=== PATIENT | male | born 1950 | race Caucasian/White ===

== ENCOUNTER 2016-04-12 06:34 | Day surgery (SDC) | payer MEDICARE ==
[~2016-04-12] VITALS: Ht 175.3 cm; Wt 98.4 kg
[~2016-04-12 06:34] MED LIST: ATEN1TAB3 PO; HYDR-2762 PO; MULT1TAB52 PO; NAPR220C4 PO; SULF1TAB3 PO; SUMA100T4 PO
[2016-04-12] MEDS ORDERED: IV RINGERS,LACTATED 1000ML 1,000 ML IV SCH ×2 (07:00→08:30)
[2016-04-12] MEDS ORDERED: ONDANSETRON PF 4 MG/2 ML VIAL. IV PRN (07:00)
[2016-04-12] MEDS ORDERED: FENTANYL PF 100 MCG/2 ML VIAL. IV PRN ×2 (07:00→14:30)
[2016-04-12] MEDS ORDERED: PROCHLORPERAZINE 10 MG/2 ML VIAL. IV PRN ×2 (07:00→14:30)
[2016-04-12] MEDS ORDERED: LIDOCAINE 1% 1 ML SYRINGE. ID PRN (07:00)
[2016-04-12] MEDS ORDERED: EPINEPHRINE 30 MG/30 ML VIAL. ONE (07:30)
[2016-04-12] MEDS ORDERED: MIDAZOLAM HCL 2 MG/2 ML VIAL. ONE (07:42)
[2016-04-12] MEDS ORDERED: ROPIVacaine 0.2% IN 0.9%NACL PF 40 MG/20 ML DISP.SYRIN. ONE (07:42)
[2016-04-12] MEDS ORDERED: CEFAZOLIN 2GM PREMIX 50 ML IV PRN (08:00)
[2016-04-12] MEDS ORDERED: PROPOFOL 20 ML IV ONE (08:26)
[2016-04-12] MEDS ORDERED: ROCURONIUM 50 MG/5 ML VIAL. ONE (08:26)
[2016-04-12] MEDS ORDERED: ONDANSETRON PF 4 MG/2 ML VIAL. ONE (08:26)
[2016-04-12] MEDS ORDERED: LIDOCAINE 2% 100 MG/5 ML DISP.SYRIN. ONE (08:26)
[2016-04-12] MEDS ORDERED: SUCCINYLCHOLINE 200 MG/10 ML VIAL. ONE (10:16)
[2016-04-12] MEDS ORDERED: FENTANYL PF 100 MCG/2 ML VIAL. ONE (10:17)
[2016-04-12] MEDS ORDERED: EPHEDRINE PF IN SALINE 50 MG/5 ML DISP.SYRIN. IV ONE (10:29)
[2016-04-12] MEDS ORDERED: PHENYLEPHRINE in 0.9% NACL PF 1 MG/10 ML DISP.SYRIN. IV ONE (10:39)
[2016-04-12] MEDS ORDERED: KETOROLAC 30 MG/ML SYRINGE FOR OR. INJ ONE (13:19)
[2016-04-12] MEDS: FENTANYL PF 100 MCG/2 ML VIAL. IV PRN ×4 (14:02→14:53)
--- NOTE | 2016-04-12 14:02 | DISCH ---
DISCHARGE INSTRUCTIONS Condition on Discharge Condition on Discharge: Stable Activity After Discharge Activity Instructions for Disc: Other, see below Other activity instructions: no active lifting of left arm away from body, fine motor activity ok Lifting Instructions after Dis: No pulling or pushing Diet after Discharge Diet after Discharge: Regular Wound Incision Care Wound/Incision Care: Ice to area for comfort, Change dressing Other wound/incision instructi: remove dressing 2 days may then shower Contacting the DR. after DC Call your doctor for: Concerns you may have Follow-Up Follow up with: Mary 7-10 days LOR WEI MD Apr 12, 2016 14:02
[2016-04-12] MEDS ORDERED: OXYC-250 PO (14:04)
--- NOTE | 2016-04-12 14:07 | PDOC ---
BRIEF OPERATIVE NOTE Date: Apr 12, 2016 Pre-Op Diagnosis rotator cuff tear Post-Op Diagnosis same plus biceps fraying and subluxation, anterior acromial spur, ac djd Procedure Performed left shoulder scope, decompression, distal clavicle excision, arthroscopic subcapularis repair, mini open supraspinatus repair and biceps tenodesis Surgeon Mary Anesthesia Type: General, Regional Blood Loss 20cc Findings above Complications none LOR WEI MD Apr 12, 2016 14:07
[2016-04-12] MEDS ORDERED: ACETAMINOPHEN INTRAVENOUS 100 ML IV ONE ×2 (14:30)
[2016-04-12] MEDS ORDERED: MEPERIDINE PF 25 MG/ML VIAL. IV PRN (14:30)
[2016-04-12] MEDS ORDERED: DIPHENHYDRAMINE 50 MG/ML VIAL IV PRN (14:30)
[2016-04-12] MEDS ORDERED: HYDROMORPHONE 2 MG/ML VIAL. IV PRN (14:30)
[2016-04-12] MEDS ORDERED: OXYCODONE/APAP 10/325 TABLET. PO ONE (14:45)
[2016-04-12] MEDS: HYDROMORPHONE 2 MG/ML VIAL. IV PRN ×4 (15:09→16:05)
[2016-04-12 16:30] VITALS: BP 159/80
--- NOTE | 2016-04-12 19:36 | OP ---
DATE OF SURGERY: 04/12/2016 PREOPERATIVE DIAGNOSES: Rotator cuff tear with anterior acromial spurring and AC degenerative joint disease. POSTOPERATIVE DIAGNOSES: Rotator cuff tear with anterior acromial spurring and AC degenerative joint disease with involvement of supraspinatus, infraspinatus and subscapularis with biceps tendon subluxation and fraying. PROCEDURE: Left shoulder arthroscopy, subacromial decompression, distal clavicle excision, arthroscopic subscapularis repair and mini open supraspinatus and infraspinatus repairs with biceps tenodesis. SURGEON: Toan Hernandez M.D. ANESTHESIA: General endotracheal. ESTIMATED BLOOD LOSS: 25 mL. COMPLICATIONS: None. OPERATIVE INDICATIONS: The patient is a 65-year-old male with nondominant left shoulder pain and weakness, unresponsive to nonoperative treatment. He had had MRI confirming clinical suspicion of rotator cuff tear. I had gone over with him the risks, benefits, postoperative course of the proposed operative repair and nonoperative treatment options, the possibility of nonhealing, continued pain, associated pathology, nerve or blood vessel damage, medical or other anesthetic complications among others along with a long recovery process requiring usually extensive physical therapy. All his questions were answered. Consent was obtained and he agrees to proceed with operative evaluation and treatment. OPERATIVE TECHNIQUE: The patient was identified, procedure verified, patient placed in the supine position on the operating table. After adequate amounts of general endotracheal anesthesia were administered, he was placed in decubitus left side up. All bony prominences were well padded. Shoulder was found to have full range of motion, no instability. He was then placed in the arthroscopic arm zimmerman with a total of 15 pounds of traction and after timeout was performed, the patient and procedure identified and verified. A posterior portal was established and anterior portal established using spinal needle localization and the shoulder joint was systematically examined. He was noted to have overall significant superior labral fraying at the biceps anchor. Biceps was pulled into the groove, noted to have significant not only subluxation due to a subscapularis tear, but also significant bicipital fraying. He had undersurface clear tear of the supraspinatus and infraspinatus that appeared to be full thickness in nature as well. I then tagged and tenotomized the biceps tendon and after preparing the subscapularis footprint, placed a single HEALICOIL suture anchor 4.75 and passed sutures with a [employer] suture passing device in mattress position and completed the subscapularis repair with sliding locking knots backed up by alternating post-half hitches. Excellent apposition was noted. Subacromial space was then entered and was noted to be very tight in nature. Nature of his rotator cuff tear made some difficult visualization. Anterior acromial spur was taken back to a type 1 acromion using cutting block technique. Distal clavicle was noted to be very narrowed and degenerative and the distal clavicle excision carried out to remove 10 mm of the distal clavicle to preserve the surrounding ligaments and joint capsule for stability. Due to poor visualization, I judged that it may be difficult to accomplish the rotator cuff repair arthroscopically and therefore, a mini open incision was made over the lateral portal. Traction suture was placed in the anterior limb of the rotator cuff. The footprint was prepared using arthroscopic bur with good bleeding bony bed obtained without decortication and a total of two sutures, HEALICOIL suture anchors were placed along the medial row and sutures were placed in a mattress fashion using the [employer] self capturing suture passing device. Medial row fixation was accomplished with sliding-locking knots backed up by alternating post-half hitches, and biceps tenodesis and lateral row fixation were accomplished with Multifix S anchors, a total of 2 placed laterally where the sutures were placed in a crossing type fashion and the biceps tendon was anchored and captured further with additional sutures resulting in excellent lateral row fixation and biceps tenodesis. The repair and tenodesis were checked in all degrees of internal and external rotation. Thorough irrigation carried out with the arthroscopic fluid. Closure accomplished with buried Vicryl suture at the fascial and subcutaneous level and subcuticular Monocryl at the incision and portals. Steri-Strips and Mastisol were applied. Sterile dressings were applied. He was placed in immobilizer, extubated and transferred to postop holding in stable condition having tolerated the procedure well. TOAN HERNANDEZ MD DR: SAJI/mike JOB#: [id number] / [id number]
== END 2016-04-12 17:21 | disposition home or self-care (01) ==
LOC: SURG 06:34
PROVIDERS: ATTEND Orthopaedic Surgery
DX: M19.012 Primary osteoarthritis, left shoulder (principal); M75.122 Complete rotator cuff tear or rupture of left shoulder, not specified as traumatic; I10 Essential (primary) hypertension; Z86.14 Personal history of Methicillin resistant Staphylococcus aureus infection; Z98.890 Other specified postprocedural states
CPT/HCPCS: 23410; 23430; 29824; J0131; J0171; J0330; J0690; J0780; J1170; J1885; J2250; J2370; J2405; J2704; J2795; J3010; J7120

== ENCOUNTER → 2018-01-31 | Outpatient (CLI) | payer OTHER ==
[~2018-01-31] MED LIST changes: +OXYC-328 PO; +SULF-143 PO; -SULF1TAB3 PO
--- NOTE | 2018-01-31 10:42 | KCIC ---
MR of the right shoulder Indication: Right shoulder pain, weakness. Technique: Standard multiplanar sequences are obtained. Findings: Artifact: Mild motion degradation. Acromioclavicular joint: Mildly degenerative. Rotator cuff: * Supraspinatus-infraspinatus tendon: Complete full-thickness rupture of the supraspinatus tendon, extending into the anterior infraspinatus tendon, measures 4 cm AP. Retraction measures about 3 cm. * Subscapularis tendon: Partial tear * Muscle bulk: Moderate volume loss of the supraspinatus muscle. Moderate fatty infiltration of the infraspinatus. Mild intramuscular edema. Complete fatty replacement of the teres minor, suggesting chronic denervation. * Subacromial subdeltoid bursa: Small effusion. Fluid: Small glenohumeral effusion. Glenohumeral cartilage: No acute defect or advanced DJD. Labrum: Blunting of the superior labrum which is small in size. Signal within the posteroinferior labrum. Biceps tendon: Suboptimally seen due to the motion but there is tendinosis and probable partial tear. Bones: No lesion or acute fracture. Soft tissue: No acute findings. Impression: 1. Complete rupture of supraspinatus and anterior infraspinatus tendon with retraction. Partial subscapularis tendon tear. Moderate muscle atrophy. 2. Essentially complete fatty replacement of the teres minor muscle, as can be seen with chronic denervation or quadrilateral space syndrome. 3. Superior labral blunting compatible with a chronic tear. 4. Posteroinferior labral tear. 5. Joint effusion. 6. Biceps tendinosis with partial tear. Electronically signed by: Orville Villa MD (01/31/2018 10:39 AM) [facility]
== END | disposition home or self-care (01) ==
LOC: KCIC MRI 07:45
PROVIDERS: ATTEND Orthopaedic Surgery
DX: S46.811A Strain of other muscles, fascia and tendons at shoulder and upper arm level, right arm, initial encounter (principal); S43.491A Other sprain of right shoulder joint, initial encounter; M62.511 Muscle wasting and atrophy, not elsewhere classified, right shoulder; M19.011 Primary osteoarthritis, right shoulder; X58.XXXA Exposure to other specified factors, initial encounter; Y93.89 Activity, other specified; Y92.89 Other specified places as the place of occurrence of the external cause; Y99.8 Other external cause status
CPT/HCPCS: 73221

== ENCOUNTER → 2019-12-05 | Outpatient (CLI) | payer OTHER ==
[2018-04-14 11:00] VITALS: BP 127/76
[~2019-12-05] MED LIST changes: +AMLO5TAB10 PO; +DIAZ2TAB PO; +DOXA1TAB2 PO; -HYDR-2762 PO; +HYDR-2765 PO; +LOSA100T14 PO; +METO100T5 PO; +MULT-445 PO; -MULT1TAB52 PO; -OXYC-328 PO; +OXYC1TAB22 PO; +SIMV5TAB14 PO; +SULF1TAB24 PO
--- NOTE | 2019-12-05 11:32 | KCIC ---
EXAM: Lumbar spine MRI without contrast. HISTORY: Lower back pain and right lower extremity weakness. TECHNIQUE: Multiplanar, multisequence magnetic resonance imaging of the lumbar spine was performed without contrast. COMPARISON: None. FINDINGS: There is mild lumbar levoscoliosis. There is grade 1 anterolisthesis of L4 on L5, measuring 5 mm. There is degenerative endplate remodeling at L1-L5. There is relative preservation of the disc space at L5-S1. There are several benign osseous hemangiomas. 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 No suspicious osseous lesion or fracture is seen. The conus terminates at L1. 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 There is a small simple exophytic cyst within the upper pole the right kidney. Follow-up is not routinely recommended for simple cysts. At L1-L2, there is a minimal disc bulge and endplate remodeling. There is mild bilateral facet arthropathy. There is mild central canal stenosis. At L2-L3, there is a disc bulge with left foraminal annular tear and anterior predominant endplate osteophytosis. There is mild bilateral facet arthropathy. There is mild bilateral foraminal stenosis. There is mild central canal stenosis. At L3-L4, there is a disc bulge and anterior predominant endplate osteophytosis. There is mild bilateral facet arthropathy. There is mild right greater than left foraminal stenosis. There is mild central canal stenosis. At L4-L5, there is a disc bulge with superimposed left foraminal to extraforaminal disc protrusion and osteophyte complex. There is severe bilateral facet arthropathy. There is hypertrophy of the ligamentum flavum. There is minimal grade 1 anterolisthesis. There is moderate right and moderate to severe left foraminal stenosis. There is severe central canal stenosis. L5-S1, there is a left foraminal to lateral disc protrusion and osteophyte complex superimposed on a disc bulge and endplate remodeling. There is moderate bilateral facet arthropathy. There is minimal right and mild left foraminal stenosis. IMPRESSION: 1. Multilevel degenerative change involving the lumbar spine, described in detail above. 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 2. Mild lumbar scoliosis and slight grade 1 anterolisthesis of L4 on L5. Electronically signed by: Annalisa Almaguer MD (12/05/2019 11:29 AM) [facility]
== END | disposition home or self-care (01) ==
LOC: KCIC MRI 09:34
PROVIDERS: ATTEND Family Medicine
DX: M47.817 Spondylosis without myelopathy or radiculopathy, lumbosacral region (principal); M25.78 Osteophyte, vertebrae; M41.86 Other forms of scoliosis, lumbar region; M48.07 Spinal stenosis, lumbosacral region
CPT/HCPCS: 72148